=== PATIENT | male | born 2000 | race Caucasian/White ===

== ENCOUNTER 2021-03-29 23:51 | Emergency (ER) | payer OTHER ==
[~2021-03-29] VITALS: Ht 193 cm; Wt 80.7 kg
[2021-03-30] MEDS ORDERED: ADDERALL 20 MG20 MG PO (00:28)
[2021-03-30] MEDS ORDERED: CELEXA40 MG PO (00:29)
[2021-03-30 01:48] LABS: ABSOLUTE EOSINOPHILS 0.1 thou/uL (0.0-0.7); ABSOLUTE LYMPHOCYTES 1.7 thou/uL (0.8-5.3); ABSOLUTE MONOCYTES 0.4 thou/uL (0.0-1.2); ABSOLUTE NEUTROPHILS 5.6 thou/uL (1.6-8.1); BASOPHILS 0.4 %; EOSINOPHILS 1.6 %; HEMATOCRIT 41.2 % (42.0-52.0); LYMPHOCYTES 21.9 %; MCH 30.2 pg (26.0-34.0); MCHC 34.1 g/dL (28.0-37.0); MCV 88.7 fL (80.0-100.0); MONOCYTES 5.6 %; MPV 10.3 fl. (7.2-11.1); NUCLEATED RBCS 0 /100WBC; PLATELET COUNT* 125 thou/uL (150-400); POLYS 70.5 %; RBC 4.65 mil/uL (4.50-6.00); RDW-CV 12.8 % (10.5-14.5); WBC 7.9 thou/uL (4.0-11.0)
[2021-03-30 01:55] LABS: CALCIUM 9.2 mg/dL (8.5-10.1); CREATININE 1.1 mg/dL (0.6-1.3); POTASSIUM 3.6 mmol/L (3.5-5.1)
[2021-03-30 01:59] LABS: ALBUMIN 4.4 g/dL (3.4-5.0); TOTAL BILIRUBIN 0.9 mg/dL (<0.1-1.0); TOTAL PROTEIN 7.3 g/dL (6.4-8.2)
[2021-03-30] MEDS ORDERED: PEPCID40 MG PO (03:08)
[2021-03-30] MEDS ORDERED: CARAFATE 1 GM TA1 GM PO (03:08)
[2021-03-30 03:32] VITALS: BP 105/50
--- NOTE | 2021-03-30 11:09 | EKG ---
[place] [address] ELECTROCARDIOGRAM REPORT Name: HEATHER PORTER Room: [facility]#: [id number] Admission: 03/29/21 Attend Phys: Discharge: 03/30/21 Date of : 89 Date of Service: 03/30/21 0134 Report #: [id number] THIS REPORT FOR: //name// [facility] ED Test Date: 2021-03-30 Test Time: 01:34:48 Pat Name: HEATHER PORTER Department: Room: Gender: M Photographer Apprentice: : 2000 Requested By: Luzmaria Palacios Order Number: [id number] MD: Jd Crouch Measurements Intervals [place] Rate: 68 P: 75 WV: 207 QRS: 105 QRSD: 117 T: 34 QT: 440 QTc: 469 Interpretive Statements Sinus rhythm Borderline prolonged [place] interval Probable left ventricular hypertrophy ST elev, probable normal early repol pattern Baseline wander in lead(s) I,III,aVR,aVL,V6 No previous ECG available for comparison Electronically Signed On 03-30-2021 11:09:37 CDT by Jd Crouch [email or web address] <ELECTRONICALLY SIGNED> By: Jd Crouch MD, FAC 03/30/21 1109 3 Jd Crouch MD, FAC /EPI
== END 2021-03-30 03:30 | disposition home or self-care (01) ==
LOC: M.ERS 23:51
PROVIDERS: Personal Emergency Response Attendant
DX: K21.9 Gastro-esophageal reflux disease without esophagitis (principal); R07.89 Other chest pain; Z79.899 Other long term (current) drug therapy; Z20.822 Contact with and (suspected) exposure to COVID-19